=== PATIENT | female | born 2000 | race Caucasian/White ===

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

== ENCOUNTER 2022-01-11 17:25 | Observation (INO) | payer OTHER ==
[~2022-01-11] VITALS: Ht 152.4 cm; Wt 74.8 kg
[~2022-01-11 17:25] MED LIST changes: +CEPH-588 PO
[2022-01-11] MEDS ORDERED: ASPI-1822 PO (18:49)
[2022-01-11] MEDS ORDERED: PREN-256 PO (18:49)
== END 2022-01-11 19:05 | disposition home or self-care (01) ==
LOC: MLD 17:25
PROVIDERS: ADMIT Obstetrics & Gynecology; ATTEND Obstetrics & Gynecology
DX: O62.9 Abnormality of forces of labor, unspecified (principal); Z20.822 Contact with and (suspected) exposure to COVID-19; Z3A.37 37 weeks gestation of pregnancy; Z88.0 Allergy status to penicillin; Z87.59 Personal history of other complications of pregnancy, childbirth and the puerperium
CPT/HCPCS: 59025; 87426; G0378; G0379

== ENCOUNTER 2022-01-30 17:10 | Observation (INO) | payer OTHER ==
[~2022-01-30] VITALS: Ht 152.4 cm; Wt 77.1 kg
[~2022-01-30 17:10] MED LIST changes: +ASPI-1822 PO; -CEPH-588 PO; +PREN-256 PO
[2022-01-30 18:34] VITALS: BP 106/65
[2022-01-30 19:03] LABS: ALBUMIN 2.2 g/dL (3.4-5.0); ANION GAP 14.4 (8-16); CARBON DIOXIDE 21.2 mmol/L (21-32); CREATININE 0.6 mg/dL (0.6-1.3); POTASSIUM 3.6 mmol/L (3.5-5.1); TOTAL BILIRUBIN 0.2 mg/dL (0.0-1.0)
[2022-01-30 19:06] LABS: BASOPHILS % (AUTO) 0.1 % (0.0-2.0); EOSINOPHILS # (AUTO) 0.2 K/uL (0-0.4); EOSINOPHILS % (AUTO) 2.2 % (0.0-4.0); HEMATOCRIT 32.9 % (36-48); HEMOGLOBIN 11.1 g/dL (12.0-16.0); LYMPHOCYTES # (AUTO) 1.8 K/uL (2.5-16.5); LYMPHOCYTES % (AUTO) 19.3 % (20.5-51.1); MEAN CORPUSCULAR HEMOGLOBIN 30 pg (27-31); MEAN CORPUSCULAR HGB CONC 34 g/dL (33-37); MONOCYTES # (AUTO) 0.5 K/uL (0.8-1.0); NEUTROPHILS % (AUTO) 73.4 % (42.2-75.2); PLATELET COUNT (AUTO) 312 K/uL (140-450); RED BLOOD CELL COUNT(AUTO) 3.78 MIL/uL (4.20-5.40); RED CELL DISTRIBUTION WIDTH 14.7 % (11.6-13.7); WHITE BLOOD COUNT (AUTO) 9.5 K/uL (4.5-11.0)
[2022-01-30 19:16] LABS: APPEARANCE,URINE CLEAR (CLEAR); BILIRUBIN,URINE NEGATIVE (NEGATIVE); BLOOD, URINE NEGATIVE (NEGATIVE); COLOR,URINE YELLOW (YELLOW); LEUKOCYTE ESTERASE ,URINE NEGATIVE (NEGATIVE); NITRITE, URINE NEGATIVE (NEGATIVE); UGLUCOSE NEGATIVE (NEGATIVE)
[2022-01-30] MEDS ORDERED: ACETAMINOPHEN 325 MG TAB PO PRN (20:00)
[2022-01-30] MEDS ORDERED: LACTATED RINGERS 1,000 ML IV SCH (20:00)
[2022-01-30 20:13] LABS: BARBITURATE, URINE NEGATIVE ng/ml (NEG <=200); BENZODIAZEPINE, URINE NEGATIVE ng/mL (NEG <=200); CANNABINOID, URINE NEGATIVE ng/mL (NEG <=50); COCAINE, URINE NEGATIVE ng/mL (NEG <=300); OPIATE, URINE NEGATIVE ng/mL (NEG <=2000); PHENCYCLIDINE SCREEN,URINE NEGATIVE ng/mL (NEG <=25)
[2022-01-30] MEDS ORDERED: MORPHINE SULFATE 5 MG/ML VIAL IVP PRN (21:15)
[2022-01-30] MEDS ORDERED: MORPHINE SULFATE 10 MG/ML VIAL ONE (21:18)
[2022-02-01 10:06] LABS: HEPATITIS B SURFACE ANTIGEN Negative (Negative)
== END 2022-01-30 23:40 | disposition home or self-care (01) ==
LOC: MLD 17:10
PROVIDERS: ADMIT Obstetrics & Gynecology; ATTEND Obstetrics & Gynecology
DX: O60.03 Preterm labor without delivery, third trimester (principal); Z20.822 Contact with and (suspected) exposure to COVID-19; Z3A.38 38 weeks gestation of pregnancy; Z88.0 Allergy status to penicillin
CPT/HCPCS: 36415; 80053; 80305; 81003; 85025; 86592; 86703; 86762; 86886; 86900; 86901; 87340; 87426; 87653; 96361; 96374; G0378; J2270

== ENCOUNTER 2022-08-14 16:43 | Emergency (ER) | payer OTHER ==
[~2022-08-14] VITALS: Ht 152.4 cm; Wt 67.1 kg
[2022-08-14 17:09] VITALS: BP 106/59
--- NOTE | 2022-08-14 17:15 | NUR ---
[facility] , PT C/O FEVER AND COUGH
[2022-08-14] MEDS ORDERED: ONDANSETRON 4 MG ODT PO ONE (17:30)
--- NOTE | 2022-08-14 19:19 | NUR ---
REPORT GIVEN TO ALBERTO STEIN, ALL QUESTIONS WERE ANSWERED
[2022-08-14] MEDS ORDERED: ONDA-188 SL (19:46)
[2022-08-14] MEDS ORDERED: PROM118S5 PO (19:46)
[2022-08-14 20:08] VITALS: BP 106/59
--- NOTE | 2022-08-14 20:08 | NUR ---
Patient discharged with v/s stable. Written and verbal after care instructions given and explained. Patient alert, oriented and verbalized understanding of instructions. Ambulatory with steady gait. All questions addressed prior to discharge. ID band removed. Patient advised to follow up with PMD. Rx of [place], AND PROMETHAZINE given. Patient educated on indication of medication including possible reaction and side effects. Opportunity to ask questions provided and answered. DX: VIRAL ILLNESS, ADULT
== END 2022-08-14 20:08 | disposition home or self-care (01) ==
LOC: MED 16:43
DX: B34.9 Viral infection, unspecified (principal); Z20.822 Contact with and (suspected) exposure to COVID-19; J45.909 Unspecified asthma, uncomplicated; Z88.0 Allergy status to penicillin; Z88.8 Allergy status to other drugs, medicaments and biological substances; Z79.899 Other long term (current) drug therapy
CPT/HCPCS: 71045; 81025; 87081; 87426; 87804; 99284; Q0162

== ENCOUNTER 2022-09-02 19:33 | Emergency (ER) | payer OTHER ==
[~2022-09-02] VITALS: Ht 152.4 cm; Wt 68.0 kg
[~2022-09-02 19:33] MED LIST changes: +PROM118S5 PO
[2022-09-02 20:05] VITALS: BP 144/74
--- NOTE | 2022-09-02 20:14 | NUR ---
TO LOBBY FOLLOWING TRIAGE
[2022-09-02] MEDS ORDERED: BACI-105 TP (20:25)
[2022-09-02] MEDS ORDERED: ACET-11169 PO (20:25)
--- NOTE | 2022-09-02 20:35 | NUR ---
Patient discharged with v/s stable. Written and verbal after care instructions given and explained. Patient alert, oriented and verbalized understanding of instructions. Ambulatory with steady gait. All questions addressed prior to discharge. ID band removed. Patient advised to follow up with PMD. Rx of ACETAMINOPHEN BACITRACIN given. Patient educated on indication of medication including possible reaction and side effects. Opportunity to ask questions provided and answered.
== END 2022-09-02 20:35 | disposition home or self-care (01) ==
LOC: MED 19:33
DX: T21.12XA Burn of first degree of abdominal wall, initial encounter (principal); T24.111A Burn of first degree of right thigh, initial encounter; T25.121A Burn of first degree of right foot, initial encounter; I10 Essential (primary) hypertension; J45.909 Unspecified asthma, uncomplicated; Z88.0 Allergy status to penicillin; Z88.8 Allergy status to other drugs, medicaments and biological substances; X10.0XXA Contact with hot drinks, initial encounter; Y93.G3 Activity, cooking and baking; Y92.89 Other specified places as the place of occurrence of the external cause; Y99.8 Other external cause status
CPT/HCPCS: 99282

== ENCOUNTER 2022-09-27 15:50 | Emergency (ER) | payer OTHER ==
[~2022-09-27] VITALS: Ht 152.4 cm; Wt 66.7 kg
[~2022-09-27 15:50] MED LIST changes: +ACET-11169 PO; +BACI-105 TP
[2022-09-27 16:05] VITALS: BP 101/52; PULSE 76; RESP 16; TEMP 97.9; O2SAT 98
--- NOTE | 2022-09-27 16:10 | NUR ---
pt ambulatory to [facility] steady gait
[2022-09-27] MEDS ORDERED: METH-1681 PO (16:35)
--- NOTE | 2022-09-27 16:39 | NUR ---
sling applied to r arm.
[2022-09-27 17:26] VITALS: BP 111/61; PULSE 65; RESP 16; TEMP 97.9; O2SAT 100
--- NOTE | 2022-09-27 17:26 | NUR ---
Patient discharged with v/s stable. Written and verbal after care instructions given and explained. Patient alert, oriented and verbalized understanding of instructions. Ambulatory with steady gait. All questions addressed prior to discharge. ID band removed. Patient advised to follow up with PMD. Rx of robaxin given. Patient educated on indication of medication including possible reaction and side effects. Opportunity to ask questions provided and answered.
== END 2022-09-27 17:26 | disposition home or self-care (01) ==
LOC: MED 15:50
DX: S46.811A Strain of other muscles, fascia and tendons at shoulder and upper arm level, right arm, initial encounter (principal); M54.2 Cervicalgia; J45.909 Unspecified asthma, uncomplicated; Z88.0 Allergy status to penicillin; Z79.899 Other long term (current) drug therapy; X58.XXXA Exposure to other specified factors, initial encounter; Y93.89 Activity, other specified; Y92.89 Other specified places as the place of occurrence of the external cause; Y99.8 Other external cause status
CPT/HCPCS: 99283

== ENCOUNTER 2023-02-15 23:55 | Emergency (ER) | payer OTHER ==
[~2023-02-15 23:55] MED LIST changes: +METH-1681 PO
== END 2023-02-16 00:20 | disposition left against medical advice (07) ==
LOC: MED 23:55
DX: J02.9 Acute pharyngitis, unspecified (principal); Z53.21 Procedure and treatment not carried out due to patient leaving prior to being seen by health care provider

== ENCOUNTER 2023-06-25 18:38 | Emergency (ER) | payer OTHER ==
[~2023-06-25] VITALS: Ht 152.4 cm; Wt 68.9 kg
[2023-06-25 18:54] VITALS: BP 104/64; PULSE 91; RESP 20; TEMP 98.6; O2SAT 99
[2023-06-25] MEDS ORDERED: ACET-10509 PO (20:22)
[2023-06-25] MEDS ORDERED: PROM118S5 PO (20:22)
[2023-06-25] MEDS ORDERED: BENZ-300 PO (20:22)
== END 2023-06-25 20:35 | disposition home or self-care (01) ==
LOC: MED 18:38
DX: B34.9 Viral infection, unspecified (principal); J45.909 Unspecified asthma, uncomplicated; Z88.0 Allergy status to penicillin; Z88.8 Allergy status to other drugs, medicaments and biological substances; Z79.899 Other long term (current) drug therapy
CPT/HCPCS: 87081; 99283

== ENCOUNTER 2023-09-25 19:41 | Emergency (ER) | payer OTHER ==
[~2023-09-25] VITALS: Ht 157.5 cm; Wt 54.4 kg
[~2023-09-25 19:41] MED LIST changes: +ACET-10509 PO; +BENZ-300 PO
[2023-09-25 20:09] VITALS: BP 113/70; PULSE 61; RESP 16; TEMP 97.6; O2SAT 99
[2023-09-25] MEDS: ONDANSETRON 4 MG ODT PO ONE (21:14)
[2023-09-25] MEDS: KETOROLAC 30 MG/ML VIAL IM ONE (21:14)
[2023-09-25 21:36] LABS: FLU A ANTIGEN negative (NEGATIVE); FLU B ANTIGEN NEGATIVE (NEGATIVE)
[2023-09-25] MEDS ORDERED: ONDA-188 SL (21:54)
[2023-09-25] MEDS ORDERED: NAPR-1704 PO (21:54)
[2023-09-25] MEDS ORDERED: BENZ100C6 PO (21:54)
[2023-09-26] MEDS ORDERED: ACET-10509 PO (19:12)
== END 2023-09-25 21:58 | disposition home or self-care (01) ==
LOC: MED 19:41
DX: B34.9 Viral infection, unspecified (principal); Z20.822 Contact with and (suspected) exposure to COVID-19; R51.9 Headache, unspecified; J45.909 Unspecified asthma, uncomplicated; E11.9 Type 2 diabetes mellitus without complications; Z88.0 Allergy status to penicillin; Z88.8 Allergy status to other drugs, medicaments and biological substances; Z79.899 Other long term (current) drug therapy
CPT/HCPCS: 81025; 82948; 87426; 87804; 96372; 99283; J1885; Q0162

== ENCOUNTER 2023-09-26 15:49 | Emergency (ER) | payer OTHER ==
[~2023-09-26] VITALS: Ht 152.4 cm; Wt 68.6 kg
[~2023-09-26 15:49] MED LIST changes: +BENZ100C6 PO; +NAPR-1704 PO
[2023-09-26 16:20] VITALS: BP 97/66; PULSE 70; RESP 18; TEMP 97.9; O2SAT 98
[2023-09-26] MEDS: ACETAMINOPHEN EXTRA STRENGTH 500 MG TAB PO ONE (18:01)
[2023-09-26] MEDS: PROCHLORPERAZINE 10 MG/2 ML VIAL IM ONE (18:02)
[2023-09-26] MEDS ORDERED: ACET-10509 PO (19:12)
[2023-09-26 19:19] VITALS: BP 112/62; PULSE 77; RESP 16; TEMP 98; O2SAT 98
== END 2023-09-26 19:19 | disposition home or self-care (01) ==
LOC: MED 15:49
DX: R51.9 Headache, unspecified (principal); J45.909 Unspecified asthma, uncomplicated; E11.9 Type 2 diabetes mellitus without complications; Z88.0 Allergy status to penicillin; Z88.8 Allergy status to other drugs, medicaments and biological substances; Z79.899 Other long term (current) drug therapy
CPT/HCPCS: 96372; 99283; J0780; Q0163

== ENCOUNTER 2023-12-18 17:40 | Emergency (ER) | payer OTHER ==
[~2023-12-18] VITALS: Ht 152.4 cm; Wt 69.1 kg
[~2023-12-18 17:40] MED LIST changes: -ACET-10509 PO; +ACET500T99 PO
[2023-12-18 18:15] VITALS: BP 105/70; PULSE 65; RESP 18; TEMP 98.1; O2SAT 100
[2023-12-18 19:03] LABS: APPEARANCE,URINE CLEAR (CLEAR); BILIRUBIN,URINE NEGATIVE (NEGATIVE); BLOOD, URINE NEGATIVE (NEGATIVE); COLOR,URINE YELLOW (YELLOW); LEUKOCYTE ESTERASE ,URINE NEGATIVE (NEGATIVE); NITRITE, URINE NEGATIVE (NEGATIVE); PH,URINE 6.5 (5.0-9.0); PROTEIN,URINE NEGATIVE (NEGATIVE); UGLUCOSE NEGATIVE (NEGATIVE); UROBILINOGEN,URINE 0.2 EU/dL (0.2 - 1)
[2023-12-18] MEDS: HYDROcodone/APAP 5/325 MG 1 TAB TAB PO ONE (19:59)
[2023-12-18 20:11] VITALS: BP 105/70; PULSE 65; RESP 18; TEMP 98.1; O2SAT 100
== END 2023-12-18 20:11 | disposition home or self-care (01) ==
LOC: MED 17:40
DX: N83.202 Unspecified ovarian cyst, left side (principal); N83.201 Unspecified ovarian cyst, right side; J45.909 Unspecified asthma, uncomplicated; E11.9 Type 2 diabetes mellitus without complications; Z79.899 Other long term (current) drug therapy; Z79.82 Long term (current) use of aspirin; Z88.0 Allergy status to penicillin; Z88.1 Allergy status to other antibiotic agents
CPT/HCPCS: 81003; 81025; 99283

== ENCOUNTER 2023-12-20 20:24 | Emergency (ER) | payer OTHER ==
[~2023-12-20] VITALS: Ht 152.4 cm; Wt 68.5 kg
[2023-12-20 20:46] VITALS: BP 104/64; PULSE 73; RESP 18; TEMP 98.6; O2SAT 100
[2023-12-20] MEDS: ACETAMINOPHEN EXTRA STRENGTH 500 MG TAB PO ONE (21:27)
[2023-12-20] MEDS: ONDANSETRON 4 MG ODT PO ONE (21:27)
[2023-12-20] MEDS: KETOROLAC 30 MG/ML VIAL IM ONE (21:30)
[2023-12-20 21:51] LABS: BILIRUBIN,URINE NEGATIVE (NEGATIVE); BLOOD, URINE NEGATIVE (NEGATIVE); COLOR,URINE YELLOW (YELLOW); LEUKOCYTE ESTERASE ,URINE TRACE (NEGATIVE); NITRITE, URINE NEGATIVE (NEGATIVE); PROTEIN,URINE NEGATIVE (NEGATIVE); UGLUCOSE NEGATIVE (NEGATIVE)
[2023-12-20 21:52] LABS: APPEARANCE,URINE SLIGHTLY HAZY (CLEAR)
[2023-12-20 21:54] LABS: BACTERIA,URINE 2+ /HPF (None Seen); RBC,URINE 0-5 /HPF (0-5); WBC,URINE 0-5 /HPF (0-5)
[2023-12-20 21:55] LABS: MUCUS,URINE 1+ /LPF (None Seen); SQUAMOUS EPITHELIAL CELL,UR 4-10 (MOD) /LPF (0-3 (FEW))
[2023-12-20 21:58] LABS: BASOPHILS % (AUTO) 0.1 % (0.0-2.0); EOSINOPHILS # (AUTO) 0.3 K/uL (0-0.4); EOSINOPHILS % (AUTO) 3.6 % (0.0-4.0); HEMATOCRIT 39.1 % (36-48); HEMOGLOBIN 13.4 g/dL (12.0-16.0); LYMPHOCYTES # (AUTO) 2.4 K/uL (2.5-16.5); LYMPHOCYTES % (AUTO) 27.2 % (20.5-51.1); MEAN CORPUSCULAR HEMOGLOBIN 33 pg (27-31); MEAN CORPUSCULAR HGB CONC 34 g/dL (33-37); MEAN CORPUSCULAR VOLUME 95.5 fL (80-94); MONOCYTES # (AUTO) 0.5 K/uL (0.8-1.0); MONOCYTES % (AUTO) 5.4 % (1.7-9.3); NEUTROPHILS # (AUTO) 5.7 K/uL (1.8-7.7); NEUTROPHILS % (AUTO) 63.7 % (42.2-75.2); PLATELET COUNT (AUTO) 276 K/uL (140-450); RED BLOOD CELL COUNT(AUTO) 4.09 MIL/uL (4.20-5.40); RED CELL DISTRIBUTION WIDTH 12.2 % (11.6-13.7)
[2023-12-20 22:13] LABS: ANION GAP 10.8 (8-16); CALCIUM 8.6 mg/dL (8.5-10.1); CARBON DIOXIDE 27.1 mmol/L (21-32); CREATININE 0.8 mg/dL (0.6-1.3); POTASSIUM 3.9 mmol/L (3.5-5.1)
[2023-12-20 22:18] LABS: ALBUMIN 3.6 g/dL (3.4-5.0); BILIRUBIN,DIRECT 0.1 mg/dL (0.0-0.3); TOTAL BILIRUBIN 0.4 mg/dL (0.0-1.0); TOTAL PROTEIN, SERUM 6.8 g/dL (6.4-8.2)
[2023-12-20] MEDS: HYDROcodone/APAP 5/325 MG 1 TAB TAB PO ONE (22:50)
[2023-12-20] MEDS ORDERED: ACET-8905 PO (23:24)
[2023-12-20 23:27] VITALS: BP 117/72; PULSE 71; RESP 16; O2SAT 98
== END 2023-12-20 23:30 | disposition home or self-care (01) ==
LOC: MED 20:24
DX: N83.202 Unspecified ovarian cyst, left side (principal); N83.201 Unspecified ovarian cyst, right side; J45.909 Unspecified asthma, uncomplicated; E11.9 Type 2 diabetes mellitus without complications; Z79.899 Other long term (current) drug therapy; Z79.82 Long term (current) use of aspirin; Z88.0 Allergy status to penicillin; Z88.1 Allergy status to other antibiotic agents
CPT/HCPCS: 36415; 80048; 80076; 81001; 81025; 82948; 83690; 85025; 87086; 96372; 99284; J1885; Q0162

== ENCOUNTER 2024-01-06 17:00 | Emergency (ER) | payer OTHER ==
[~2024-01-06] VITALS: Ht 152.4 cm; Wt 65.8 kg
[~2024-01-06 17:00] MED LIST changes: +ACET-8905 PO
[2024-01-06 17:11] VITALS: BP 101/58; PULSE 95; RESP 19; TEMP 97.8; O2SAT 95
[2024-01-06 19:17] LABS: ANION GAP 8.8 (8-16); BASOPHILS % (AUTO) 0.2 % (0.0-2.0); CALCIUM 9.1 mg/dL (8.5-10.1); CARBON DIOXIDE 30.9 mmol/L (21-32); CREATININE 0.9 mg/dL (0.6-1.3); EOSINOPHILS # (AUTO) 0.2 K/uL (0-0.4); EOSINOPHILS % (AUTO) 2.6 % (0.0-4.0); HEMATOCRIT 40.4 % (36-48); HEMOGLOBIN 13.7 g/dL (12.0-16.0); LYMPHOCYTES # (AUTO) 2.7 K/uL (2.5-16.5); LYMPHOCYTES % (AUTO) 32.3 % (20.5-51.1); MEAN CORPUSCULAR HEMOGLOBIN 33 pg (27-31); MEAN CORPUSCULAR HGB CONC 34 g/dL (33-37); MEAN CORPUSCULAR VOLUME 96.7 fL (80-94); MONOCYTES # (AUTO) 0.5 K/uL (0.8-1.0); MONOCYTES % (AUTO) 5.9 % (1.7-9.3); NEUTROPHILS # (AUTO) 4.9 K/uL (1.8-7.7); PLATELET COUNT (AUTO) 321 K/uL (140-450); POTASSIUM 3.7 mmol/L (3.5-5.1); RED BLOOD CELL COUNT(AUTO) 4.17 MIL/uL (4.20-5.40); RED CELL DISTRIBUTION WIDTH 11.8 % (11.6-13.7); WHITE BLOOD COUNT (AUTO) 8.3 K/uL (4.8-10.8)
[2024-01-06] MEDS: ONDANSETRON 4 MG ODT PO ONE (19:19)
[2024-01-06] MEDS: HYDROcodone/APAP 5/325 MG 1 TAB TAB PO ONE (19:19)
[2024-01-06 20:00] LABS: APPEARANCE,URINE CLEAR (CLEAR); BILIRUBIN,URINE NEGATIVE (NEGATIVE); BLOOD, URINE NEGATIVE (NEGATIVE); COLOR,URINE YELLOW (YELLOW); LEUKOCYTE ESTERASE ,URINE 1+ (NEGATIVE); NITRITE, URINE NEGATIVE (NEGATIVE); PH,URINE 6.5 (5.0-9.0); PROTEIN,URINE NEGATIVE (NEGATIVE); UGLUCOSE NEGATIVE (NEGATIVE); UROBILINOGEN,URINE 0.2 EU/dL (0.2 - 1)
[2024-01-06 20:11] LABS: BACTERIA,URINE >30 (MANY) /HPF (None Seen); MUCUS,URINE None Seen /LPF (None Seen); RBC,URINE 0-5 /HPF (0-5); YEAST,URINE None Seen /HPF (None Seen)
[2024-01-06 20:12] LABS: TRICHOMONAS,URINE None Seen /HPF (None Seen); WHITE BLOOD CELL CASTS,URINE None Seen /LPF (None Seen)
[2024-01-06] MEDS ORDERED: ONDA-189 PO (20:15)
[2024-01-06] MEDS ORDERED: ACET-8905 PO (20:15)
[2024-01-06] MEDS ORDERED: NITR100C7 PO (20:17)
[2024-01-06] MEDS ORDERED: IBUP-2213 PO (20:18)
[2024-01-06 20:34] VITALS: BP 105/60; PULSE 92; RESP 17; TEMP 97.8; O2SAT 95
== END 2024-01-06 20:34 | disposition home or self-care (01) ==
LOC: MED 17:00
DX: N39.0 Urinary tract infection, site not specified (principal); J45.909 Unspecified asthma, uncomplicated; E11.9 Type 2 diabetes mellitus without complications; Z79.899 Other long term (current) drug therapy; Z88.0 Allergy status to penicillin; Z88.8 Allergy status to other drugs, medicaments and biological substances
CPT/HCPCS: 36415; 80048; 81001; 81025; 83690; 85025; 87086; 99283; Q0162